=== PATIENT | female | born 2000 | race Two or more races ===

== ENCOUNTER 2024-06-04 19:47 | Emergency (ER) | payer OTHER, SELFPAY ==
[2024-06-04 20:09] VITALS: BP 120/82; PULSE 81; RESP 18; TEMP 37.2; O2SAT 97
--- NOTE | 2024-06-04 20:18 | XR_ITS ---
Examination: OB Transvaginal ultrasound of the pelvis, complete Technique: Transvaginal sonographic images pelvis performed using ross scale imaging Exam date and time: June 04, 2024 2041 hours INDICATIONS: Vaginal bleeding and discharge beginning this morning FINDINGS: Uterus 11.4 cm Endometrial irregular gestational sac 1.7 cm corresponds to 6 weeks 4 days gestational age No pole, no cardiac activity Heterogeneous areas adjacent to the gestational sac Ovaries obscured by bowel gas IMPRESSION: Suspicious for molar No viable intrauterine gestation Recommend short term follow-up transvaginal pelvic sonography.
--- NOTE | 2024-06-04 20:18 | PD.EDRME ---
Rapid Medical Screening Exam RME Arrival date/time: 06/04/24 19:47 24F at approximately 7-8 weeks and with no significant PMH presents to ED with 2 days of bloody discharge. Patient denies pelvic pain and dysuria. Time Seen by Provider: 06/04/24 20:17 Vital signs: Vital Signs Temperature 99.0 F 06/04/24 20:09 Pulse Rate 81 06/04/24 20:09 Respiratory Rate 18 06/04/24 20:09 Blood Pressure 120/82 06/04/24 20:09 Pulse Oximetry (%) 97 06/04/24 20:09 Oxygen Delivery Method Room Air 06/04/24 20:09
[2024-06-04 20:59] LABS: Collection Type, Urine Clean Catch
[2024-06-04 21:10] LABS: Bilirubin,Urine Negative (Negative); Blood,Urine 2+ (Negative); Clarity,Urine Clear (Clear/Hazy); Color,Urine Lt-Yellow (Lt Yel-Yel); Glucose, Urine Negative (Negative); Ketones,Urine Negative (Negative); Leukocyte Esterase,Urine Negative (Negative); Nitrite,Urine Negative (Negative); Protein,Urine Negative (Neg - Trace); RBC,Urine 3 /hpf (0-3); Specific Gravity,Urine 1.024 (1.001-1.035); Squamous Epithelial Cell,Urine 3 /hpf (0-5); Urobilinogen,Urine Negative mg/dL (0.0-1.0); WBC,Urine 1 /hpf (0-5)
[2024-06-04 21:27] LABS: Basophils % (Auto) 0 % (0-2.5); Eosinophils # (Auto) 0.3 Thou/mm3 (0.0-0.5); Eosinophils % (Auto) 3 % (0-10); Hematocrit 39.1 % (36.0-46.0); Hemoglobin 13.4 g/dL (12.0-16.0); Immature Granulocytes % (Auto) 0 % (0-0); Immature Granulocytes Auto 0.02 Thou/mm3 (0.00-0.00); Lymphocytes # (Auto) 3.3 Thou/mm3 (1.0-4.8); Lymphocytes % (Auto) 35 % (10-50); Mean Corpuscular HGB Conc 34.3 g/dl (31.0-37.0); Mean Corpuscular Hemoglobin 29.8 pg (25.0-35.0); Mean Corpuscular Volume 87 fL (80-100); Monocytes # (Auto) 0.8 Thou/mm3 (0.0-0.8); Monocytes % (Auto) 8 % (0-12); Neutrophils % (Auto) 53 % (37-80); Nucleated Red Blood Cell % 0 /100 WBC (0); Platelet Count 256 Thou/mm3 (140-440); RDW Standard Deviation 40.7 fL (36.4-46.3); White Blood Count 9.4 Thou/mm3 (3.6-11.0)
[2024-06-04 21:47] LABS: Alanine Aminotransferase 35 U/L (10-49); Albumin, Serum 4.5 gm/dL (3.5-5.0); Albumin/Globulin Ratio 1.5 (1.2-2.2); Alkaline Phosphatase 69 U/L (46-116); Anion Gap 9 (7-16); Aspartate Amino Transferase 25 U/L (0-34); BUN/Creatinine Ratio 11 Ratio (12-20); Bilirubin,Total 0.4 mg/dL (0.3-1.2); Blood Urea Nitrogen 9 mg/dL (9-23); Calcium 10.4 mg/dL (8.3-10.6); Calcium (Corrected) 10.4 mg/dL (8.5-10.1); Carbon Dioxide 24.8 mMol/L (20.0-31.0); Chloride 105 mMol/L (98-107); Creatinine (Component) 0.8 mg/dL (0.6-1.3); Glucose 97 mg/dL (74-106); Osmolality,Calculated 276 (275-295); Potassium 4.1 mMol/L (3.4-5.1); Sodium 139 mMol/L (136-145); Total Protein 7.5 gm/dL (5.7-8.2); eGFR > 60 See Note
[2024-06-04 22:21] LABS: Beta HCG,Quantitative 19686 mIU/mL (<5.0)
--- NOTE | 2024-06-05 00:37 | EDNOTE_ITS ---
ED General RME/HPI General Chief complaint: Urogenital-Female Stated complaint: 8 WEEKS , DISCHARGE Time Seen by Provider: 06/04/24 20:17 Arrival date/time: 06/04/24 19:47 Limitations: no limitations RME / HPI RME / HPI narrative: 06/04/24 19:47 24F at approximately 7-8 weeks and with no significant PMH presents to ED with 2 days of bloody discharge. Patient denies pelvic pain and dysuria. --------- Dr. [facility]endez's Main ED Evaluation: 24yo female who is 7-8 weeks gestation presents to the ED for a chief complaint of mucousy discharge. Patient states she has one episode of mucousy discharge earlier today and was unsure what it was, so she came in for evaluation. Patient denies any abdominal pain, vaginal bleeding or any other associated symptoms. She states she is breast-feeding. She took a test at the beginning of May and was noted to be positive. She has an appointment with her OB in [place] on 06/13/24. Patient states she had an OB US done on 05/15/24, which showed she had a viable . Related Data Allergies Allergy/AdvReac Type Severity Reaction Status Date / Time No Known Allergies Allergy Verified 06/04/24 19:50 Review of Systems Review of Systems Systems Reviewed: All systems reviewed, normal except as documented Past Medical History Social History SMOKING STATUS: Never smoker ED Exam General Limitations: Present no limitations General appearance: Present alert and in no apparent distress Head Head exam: Present atraumatic Eye Eye exam: Present normal appearance, PERRL and EOMI ENT ENT exam: Present normal exam, normal oropharynx and mucous membranes moist Neck Neck exam: Present normal inspection, full ROM and trachea midline Chest Chest inspection: Present normal inspection and symmetric chest wall rise Respiratory Respiratory exam: Present normal lung sounds bilaterally Cardiovascular Cardiovascular exam: Present regular rate, normal rhythm and normal heart sounds Abdominal Exam Abdominal exam: Present soft and normal bowel sounds Extremities Exam Extremities exam: Present normal inspection and full ROM Back Exam Back exam: Present normal inspection and full ROM Neurological Exam Neurological exam: Present alert, oriented X3 and CN II-XII intact Psychiatric Psychiatric exam: Present normal affect and normal mood Skin Skin exam: Present warm, dry, intact and normal color Course Quality Measures none Orders Category Date Time Status US OB transvaginal Stat Exams 06/04/24 20:18 Completed ABO/RH Type Stat Lab 06/04/24 21:18 Completed Beta HCG,Quantitative Stat Lab 06/04/24 21:18 Completed CBC Stat Lab 06/04/24 21:18 Completed CMP [Comprehensive Metabolic Panel] Stat Lab 06/04/24 21:18 Completed UA [Urinalysis] Stat Lab 06/04/24 20:29 Completed Urine Culture Stat Lab 06/04/24 20:29 Received Vital Signs Vital signs: Vital Signs Temperature 99.0 F 06/04/24 20:09 Pulse Rate 81 06/04/24 20:09 Respiratory Rate 18 06/04/24 20:09 Blood Pressure 120/82 06/04/24 20:09 Pulse Oximetry (%) 97 06/04/24 20:09 Oxygen Delivery Method Room Air 06/04/24 20:09 [facility] Patient data External records reviewed:: [facility] previous records (Per chart review, patient has no previous ED visits or admissions to this facility.) Clinical information provided by:: patient Social determinants that could affect healthcare access:: none Patient has the following chronic illnesses:: none How is presenting disease/condition affected by chronic disease/condition?: no chronic disease Evaluation data The following diagnostics were reviewed and interpreted by me:: lab results and radiology exam(s) Lab and/or radiology exams considered but not ordered:: none Interpretation Summary: CBC is normal, [place] [address], according to my interpretation. [facility] Report Signed Patient: MADHAVI VICK Record#: [id number] Birthdate: 2000 Age/Sex: 24 / F Location: [facility] Attending Dr: Ordering Physician: Hardy Mondragon PA-C Date of Service: 06/04/24 Procedure(s): US OB transvaginal Accession Number(s): [id number] cc: Everett Wells MD; NO PRIMARY/FAMILY,PHYSICIAN; Hardy Mondragon PA-C~ Examination: OB Transvaginal ultrasound of the pelvis, complete Technique: Transvaginal sonographic images pelvis performed using ross scale imaging Exam date and time: June 04, 2024 2041 hours INDICATIONS: Vaginal bleeding and discharge beginning this morning FINDINGS: Uterus 11.4 cm Endometrial irregular gestational sac 1.7 cm corresponds to 6 weeks 4 days gestational age No pole, no cardiac activity Heterogeneous areas adjacent to the gestational sac Ovaries obscured by bowel gas IMPRESSION: Suspicious for molar No viable intrauterine gestation Recommend short term follow-up transvaginal pelvic sonography. Dictated By: Everett Wells MD Signed By: <Electronically signed by Everett Wells MD in [place]> 06/04/24 6571 Medications Medications considered but not ordered:: none Medication administrations:: none Consultations Consultation(s) initiated? (list below): No Diagnosis Differential Diagnosis ED Complaint MDM: ectopic , early miscarriage, doubt molar ,early Most likely diagnosis given after review of the tests above:: see clinical impression below Admission Indicated Admission indicated?: not indicated Explain why admission is indicated or not indicated:: No criteria for admission. Admission Request Was there a request for admission?: No Disposition Plan Disposition Plan: Discharge Discharge Attestation Discharge Attestation: The patient and all family members were given an opportunity to ask questions and understood the discharge instructions. Discharge instructions specifically effects, indications for sooner follow up or return to the emergency department, and the expected course of current diagnosis. Patient condition: Stable Medical Decision Making Differential Diagnosis Differential Diagnosis: ectopic , early miscarriage, doubt molar ,early Lab Data 06/04/24 21:18 06/04/24 21:18 Labs: Lab Results 06/04/24 06/04/24 Range/Units 20:29 21:18 WBC 9.4 (3.6-11.0) Thou/mm3 RBC 4.50 (4.00-5.20) Miln/mm3 Hgb 13.4 (12.0-16.0) g/dL Hct 39.1 (36.0-46.0) % MCV 87 (80-100) fL MCH 29.8 (25.0-35.0) pg MCHC 34.3 (31.0-37.0) g/dl RDW Std Deviation 40.7 (36.4-46.3) fL Plt Count 256 (140-440) Thou/mm3 Neut % (Auto) 53 (37-80) % Lymph % (Auto) 35 (10-50) % [place] % (Auto) 8 (0-12) % Eos % (Auto) 3 (0-10) % Baso % (Auto) 0 (0-2.5) % Neut # (Auto) 5.0 (1.8-7.7) Thou/mm3 Lymph # (Auto) 3.3 (1.0-4.8) Thou/mm3 Mcdonough # (Auto) 0.8 (0.0-0.8) Thou/mm3 Eos # (Auto) 0.3 (0.0-0.5) Thou/mm3 Baso # (Auto) 0.0 (0.0-0.2) Thou/mm3 Immature Gran # (Auto) 0.02 H (0.00-0.00) Thou/mm3 Absolute Nucleated RBC 0.00 (0.00-0.00) Thou/mm3 Immature Gran % 0 (0-0) % Nucleated RBC % 0 (0) /100 WBC Sodium 139 (136-145) mMol/L Potassium 4.1 (3.4-5.1) mMol/L Chloride 105 (98-107) mMol/L Carbon Dioxide 24.8 (20.0-31.0) mMol/L Anion Gap 9 (7-16) BUN 9 (9-23) mg/dL Creatinine 0.8 (0.6-1.3) mg/dL Estim Creat Clear Calc Not Performed. eGFR > 60 (60 - ) See Note BUN/Creatinine Ratio 11 L (12-20) Ratio Glucose 97 (74-106) mg/dL Calculated Osmolality 276 (275-295) Calcium 10.4 (8.3-10.6) mg/dL Corrected Calcium 10.4 H (8.5-10.1) mg/dL Total Bilirubin 0.4 (0.3-1.2) mg/dL AST 25 (0-34) U/L ALT 35 (10-49) U/L Alkaline Phosphatase 69 (46-116) U/L Total Protein 7.5 (5.7-8.2) gm/dL Albumin 4.5 (3.5-5.0) gm/dL Globulin 3.0 (2.3-3.5) gm/dL Albumin/Globulin Ratio 1.5 (1.2-2.2) Beta HCG, Quant 16516 (<5.0) mIU/mL Ur Collection Type Clean Catch Urine Color Lt-Yellow (Lt Yel-Yel) Urine Clarity Clear (Clear/Hazy) Urine pH 6.0 (5.0-7.0) Ur Specific [place] 1.024 (1.001-1.035) Urine Protein Negative (Neg - Trace) Urine Glucose (UA) Negative (Negative) Urine Ketones Negative (Negative) Urine Blood 2+ A (Negative) Urine Nitrite Negative (Negative) Urine Bilirubin Negative (Negative) Urine Urobilinogen (Auto) Negative (0.0-1.0) mg/dL Ur Leukocyte Esterase Negative (Negative) Urine RBC 3 (0-3) /hpf Urine WBC 1 (0-5) /hpf Ur Squamous Epith Cells 3 (0-5) /hpf Urine Bacteria None (None) Blood Type O Positive Blood Bank Wristband ID Yes Discharge Plan Plan Patient Disposition: HOME (Self Care) Patient condition on transfer: Stable Prescriptions/Referrals Referrals: No Primary/Family,Physician [Primary Care Provider] - In 1 week Problem List Clinical Impression: Vaginal bleeding in Patient/Caregiver Discharge Instructions Additional Instructions: 1. Today your quant level is 19,000. Please remember the number if you end up at a different hospital they will want to know what that is. You also are blood type a positive. 2. Return in 48 hours or Friday morning at 8 AM to have your blood hormone level rechecked and to get another vaginal ultrasound. 3. Return before your appointment Friday in the emergency department for worsening symptoms, any passing blood clots or vaginal bleeding, you have abdominal pain, you pass out, or any other concerns. Print Language: Nigerien Stand Alone Forms: [facility]ade Award Info., Patient Portal Info Letter
[2024-06-05 00:40] VITALS: BP 129/87; PULSE 82; RESP 16; TEMP 36.8; O2SAT 100
== END 2024-06-05 01:33 | disposition home or self-care (01) ==
PROVIDERS: Physician Assistant; Emergency Provider Emergency Medicine
DX: O20.9 Hemorrhage in early pregnancy, unspecified (principal); Z3A.01 Less than 8 weeks gestation of pregnancy
CPT/HCPCS: 36415; 76817; 80053; 81001; 84702; 85025; 86900; 86901; 87086; 99284